=== PATIENT | male | born 1960 | race Caucasian/White ===

== ENCOUNTER → 2017-09-13 | Outpatient (CLI) | payer MEDICAID | LOC: FIMAGING 15:48 | PROVIDERS: ATTEND Internal Medicine Pulmonary Disease | DX: Z09 Encounter for follow-up examination after completed treatment for conditions other than malignant neoplasm (principal); Z87.09 Personal history of other diseases of the respiratory system; Z98.890 Other specified postprocedural states ==

== ENCOUNTER → 2017-11-15 | Outpatient (CLI) | payer MEDICAID | LOC: FIMAGING 14:24 | PROVIDERS: ATTEND Internal Medicine Pulmonary Disease | DX: R91.8 Other nonspecific abnormal finding of lung field (principal); Z98.890 Other specified postprocedural states; Z87.09 Personal history of other diseases of the respiratory system ==

== ENCOUNTER → 2017-12-19 | Outpatient (CLI) | payer MEDICAID | LOC: FIMAGING 10:22 | PROVIDERS: ATTEND Internal Medicine Pulmonary Disease | DX: R60.0 Localized edema (principal) ==

== ENCOUNTER 2018-10-25 16:28 | Inpatient (IN) | payer MEDICAID, OTHER ==
--- NOTE | 2018-10-25 16:59 | EDPHY ---
H & P Stated Complaint: CP/hx of pneumothorax Time Seen by Provider: 10/25/18 16:51 HPI/ROS: CHIEF COMPLAINT: Chest pain chest pain, dyspnea x1 hour HISTORY OF PRESENT ILLNESS: 58-year-old male history of recurrent pneumothoraces arrives via private vehicle complaining of chest pain dyspnea for the past 1 hr which occurred when he was shaking a can. He notes history of asthma, has been experiencing recent URI symptoms. Denies trauma. REVIEW OF SYSTEMS: 10 systems reviewed and negative with the exception of the elements mentioned in the history of present illness PAST MEDICAL & SURGICAL HISTORY: multiple pneumothoraces, asthma SOCIAL HISTORY: Nonsmoker. PHYSICAL EXAM (Prior to examination, patient consented to physical exam, hands were washed and my usual and customary physical exam procedures followed) 1) GENERAL: Marfan-esque body habitus alert and oriented. Appears to be in no acute distress. 2) HEAD: Normocephalic, atraumatic 3) HEENT: Pupils equal, round, reactive to light bilaterally. Sclera anicteric. 4) NECK: Full range of motion, no meningeal signs. 5) LUNGS: decreased breath sound right lung apex, no wheezes, no rhonchi, no retractions. 6) HEART: Regular rate and rhythm, no murmur, no heave, no gallop. 7) ABDOMEN: No guarding, no rebound, no focal tenderness, negative McBurney's, negative Poon's, negative Rovsing's, negative peritoneal sign, 8) MUSCULOSKELETAL: Moving all extremities, no focal areas of tenderness, no obvious trauma. No peripheral edema or discoloration. 9) BACK: No CVA tenderness, no midline vertebral tenderness, no fluctuance, no step-off, no obvious trauma, no visual or palpable abnormality. 10) SKIN: No rash, no petechiae. 11) Psychiatric: Patient is oriented X 3, there is no agitation. DIFFERENTIAL DIAGNOSIS: In no particular order include but limited to pneumothorax, hemothorax, acute asthma exacerbation - Personal History Current Tetanus/Diphtheria Vaccine: Yes - Medical/Surgical History Hx Asthma: No Hx Chronic Respiratory Disease: No Hx Diabetes: No Hx Cardiac Disease: No Hx Renal Disease: No Hx Cirrhosis: No Hx Alcoholism: No Other PMH: pneumo - Social History Smoking Status: Never smoked Constitutional: Initial Vital Signs Temperature (C) 36.7 C 10/25/18 16:37 Heart Rate 69 10/25/18 16:37 Respiratory Rate 22 H 10/25/18 16:37 Blood Pressure 74/41 L 10/25/18 16:37 O2 Sat (%) 93 10/25/18 16:37 O2 Delivery Mode Nasal Cannula O2 (L/minute) 2 Allergies/Adverse Reactions: No Known Allergies Allergy (Unverified 10/25/18 16:46) Home Medications: Medication Instructions Recorded Albuterol Sulfate [Proair Hfa] 1 puffs IH Q4-6PRN PRN 10/25/18 Calcium Carbonate [Tums 500MG (*)] 500 mg PO HS PRN 10/25/18 Nitroglycerin [Nitroglycerin] 1 tab SL Q5M PRN 10/25/18 Simethicone [Gas Relief] 125 mg PO HS PRN 10/25/18 Tamsulosin HCl [Flomax 0.4 MG (*)] 0.4 mg PO HS 10/25/18 sulfaSALAzine [Sulfasalazine] 500 mg PO BID 10/25/18 Medical Decision Making - Diagnostics Imaging Results: Imaging Impressions Chest X-Ray 10/25/18 16:44 Impression: 1. Interim development of a right apical pneumothorax. 2. Status post left apical bullectomy change with stable appearance of the left apical cavity, compared to 09/13/2017 and associated volume loss with tracheal shift to the left. 3. COPD with bronchitis. Findings were discussed with Luis Granados PA-C at 17:39, on 10/25/2018. Chest CT 10/25/18 17:09 Impression: 1. Stable appearance of right-sided pneumothorax, compared to chest radiography earlier this afternoon. 2. Relatively stable appearance of air-containing cavity in the left apex with prior left apical bullectomy change, compared to 11/15/2017. ED Course/Re-evaluation: 5:00 p.m.: Chest x-ray confirms bilateral pneumothoraces right slightly greater than left. On-call trauma surgery has been paged. Last oral intake noon today. 5:05 p.m.: Consultation with on-call trauma surgery Dr. Jann Rao 6:30 p.m.: in the ER to evaluate patient 6:50 p.m.: Dr. Rao will admit patient Step-Down Unit - Data Points Laboratory Results: Laboratory Results 10/25/18 16:57 10/25/18 16:57 10/25/18 10/25/18 10/25/18 16:57 16:57 16:57 WBC 9.95 10^3/uL H 10^3/uL (3.80-9.50) RBC 4.39 10^6/uL L 10^6/uL (4.40-6.38) Hgb 13.7 g/dL g/dL (13.7-17.5) Hct 42.3 % % (40.0-51.0) MCV 96.4 fL fL (81.5-99.8) MCH 31.2 pg pg (27.9-34.1) MCHC 32.4 g/dL g/dL (32.4-36.7) RDW 12.9 % % (11.5-15.2) Plt Count 206 10^3/uL 10^3/uL (150-400) MPV 9.0 fL fL (8.7-11.7) Neut % (Auto) 68.8 % % (39.3-74.2) Lymph % (Auto) 18.0 % % (15.0-45.0) Louisa % (Auto) 11.0 % % (4.5-13.0) Eos % (Auto) 1.5 % % (0.6-7.6) Baso % (Auto) 0.5 % % (0.3-1.7) Nucleat RBC Rel Count 0.0 % % (0.0-0.2) Absolute Neuts (auto) 6.85 10^3/uL H 10^3/uL (1.70-6.50) Absolute Lymphs (auto) 1.79 10^3/uL 10^3/uL (1.00-3.00) Absolute Monos (auto) 1.09 10^3/uL H 10^3/uL (0.30-0.80) Absolute Eos (auto) 0.15 10^3/uL 10^3/uL (0.03-0.40) Absolute Basos (auto) 0.05 10^3/uL 10^3/uL (0.02-0.10) Absolute Nucleated RBC 0.00 10^3/uL 10^3/uL (0-0.01) Immature Gran % 0.2 % % (0.0-1.1) Immature Gran # 0.02 10^3/uL 10^3/uL (0.00-0.10) PT 13.8 SEC SEC (12.0-15.0) INR 1.10 (0.83-1.16) APTT 29.1 SEC SEC (23.0-38.0) Sodium 135 mEq/L mEq/L (135-145) Potassium 3.7 mEq/L mEq/L (3.5-5.2) Chloride 97 mEq/L mEq/L (97-110) Carbon Dioxide 29 mEq/l mEq/l (22-31) Anion Gap 9 mEq/L mEq/L (6-14) BUN 12 mg/dL mg/dL (7-23) Creatinine 0.9 mg/dL mg/dL (0.7-1.3) Estimated GFR > 60 Glucose 101 mg/dL H mg/dL (70-100) Calcium 9.1 mg/dL mg/dL (8.5-10.4) Medications Given: Ibuprofen (Motrin) 600 mg PO Q8HRS WALKER Stop: 04/23/19 21:59 Last Admin: 10/25/18 21:26 Dose: 600 mg Simethicone (Mylicon) 120 mg PO HS PRN PRN Reason: BLOATING Last Admin: 10/25/18 21:27 Dose: 120 mg Sulfasalazine (Azulfidine) 500 mg PO BID WALKER Stop: 11/24/18 20:59 Last Admin: 10/25/18 21:27 Dose: 500 mg Tamsulosin HCl (Flomax) 0.4 mg PO HS WALKER Stop: 04/23/19 20:59 Last Admin: 10/25/18 21:27 Dose: 0.4 mg Discontinued Medications Fentanyl (Sublimaze) 50 mcg IVP EDNOW ONE Stop: 10/25/18 17:01 Last Admin: 10/25/18 17:05 Dose: 50 mcg Sodium Chloride (Ns) 1,000 mls @ 0 mls/hr IV ONCE ONE PRN Reason: Wide Open Stop: 10/25/18 17:01 Last Admin: 10/25/18 17:05 Dose: 1,000 mls Departure - Departure Disposition: [facility] Acute Clinical Impression: Pneumothorax Qualifiers: Pneumothorax type: spontaneous, primary Qualified Code(s): J93.11 - Primary spontaneous pneumothorax Condition: Fair
[2018-10-25] MEDS ORDERED: NS 1,000 ML IV ONE (17:00)
[2018-10-25] MEDS ORDERED: fentaNYL 100 MCG/2 ML INJ IVP ONE (17:00)
[2018-10-25 17:09] LABS: PLATELET COUNT 206 10^3/uL (150-400)
[2018-10-25 17:20] LABS: INR 1.1 (0.83-1.16); PROTIME(PATIENT) 13.8 SEC (12.0-15.0)
[2018-10-25] MEDS ORDERED: IOPAMIDOL (ISOVUE-300) 100 ML BTL ONE (17:27)
[2018-10-25] MEDS ORDERED: NITROGLYCERIN 0.4 MG BTL SL PRN (19:22)
[2018-10-25] MEDS ORDERED: SIMETHICONE 80 MG TAB CHEW PO PRN (19:22)
[2018-10-25] MEDS ORDERED: ONDANSETRON DISINTEGRATING 4 MG TAB PO PRN (19:23)
[2018-10-25] MEDS ORDERED: HYDROCODONE/APAP 5/325 TAB PO PRN (19:23)
[2018-10-25] MEDS ORDERED: ALBUTEROL 60 PUFFS/8 GM MDI IH PRN (19:26)
--- NOTE | 2018-10-25 19:28 | PDGENHP ---
History and Physical - Chief Complaint right sided chest pain - History of Present Illness 58 y/o male with recent URI and sudden onset of right sided chest pain following a coughing spell. He was seen in the ED and plain films showed "bilateral" pneumothorax. Surgical consult was requested History Information - Allergies/Home Medication List Allergies/Adverse Reactions: No Known Allergies Allergy (Unverified 10/25/18 16:46) Home Medications: Albuterol Sulfate [Proair Hfa] 1 puffs IH Q4-6PRN PRN 10/25/18 [Last Taken Unknown] Calcium Carbonate [Tums 500MG (*)] 500 mg PO HS PRN 10/25/18 [Last Taken Unknown ] Nitroglycerin [Nitroglycerin] 1 tab SL Q5M PRN 10/25/18 [Last Taken Unknown] Simethicone [Gas Relief] 125 mg PO HS PRN 10/25/18 [Last Taken 10/24/18] Tamsulosin HCl [Flomax 0.4 MG (*)] 0.4 mg PO HS 10/25/18 [Last Taken 10/24/18] sulfaSALAzine [Sulfasalazine] 500 mg PO BID 10/25/18 [Last Taken 10/25/18 13:00] I have personally reviewed and updated: family history, medical history, social history, surgical history - Past Medical History asthma Additional medical history: BPH - Surgical History Additional surgical history: left VATS for spontaneous pneumothorax. drainage of pelvic synovial cyst - Family History Positive for: non-pertinent - Social History Smoking Status: Never smoked Alcohol Use: None Drug Use: None Additional social history: /accompanied by his . last visit to [place] [facility] 2016 Review of Systems Review of Systems: Constitutional: Reports: recent illness EENMT: Reports: no symptoms Cardiac: Reports: chest pain Respiratory: Reports: cough, shortness of breath, wheezing Gastrointestinal: Reports: no symptoms Genitourinary: Reports: no symptoms Muscolosketal: Reports: no symptoms Skin: Reports: no symptoms Neurological: Reports: no symptoms Hematologic/Lymphatic: Reports: no symptoms Physical Exam Physical Exam: Temp Pulse Resp BP Pulse Ox 36.9 C 62 20 102/53 L 98 10/25/18 18:28 10/25/18 19:20 10/25/18 19:20 10/25/18 19:20 10/25/18 19:20 O2 (L/minute) 2 Constitutional: no apparent distress, other (thin adult male in NAD) Eyes: PERRL Cardiovascular: regular rate and rhythym Peripheral Pulses: 3+: femoral (R), femoral (L) Respiratory: no respiratory distress, no rales or rhonchi, reduced air movement (right), bronchial breath sounds Gastrointestinal: soft, non-tender abdomen, no palpable masses Genitourinary: no bladder fullness Skin: warm Musculoskeletal: full muscle strength Neurologic: AAOx3 Psychiatric: interacting appropriately, not anxious Lymph, Heme, Immunologic: no cervical LAD, no supraclavicular LAD Lab Data & Imaging Review 10/25/18 16:57 10/25/18 16:57 WBC 9.95 10^3/uL (3.80-9.50) H 10/25/18 16:57 RBC 4.39 10^6/uL (4.40-6.38) L 10/25/18 16:57 Hgb 13.7 g/dL (13.7-17.5) 10/25/18 16:57 Hct 42.3 % (40.0-51.0) 10/25/18 16:57 MCV 96.4 fL (81.5-99.8) 10/25/18 16:57 MCH 31.2 pg (27.9-34.1) 10/25/18 16:57 MCHC 32.4 g/dL (32.4-36.7) 10/25/18 16:57 RDW 12.9 % (11.5-15.2) 10/25/18 16:57 Plt Count 206 10^3/uL (150-400) 10/25/18 16:57 MPV 9.0 fL (8.7-11.7) 10/25/18 16:57 Neut % (Auto) 68.8 % (39.3-74.2) 10/25/18 16:57 Lymph % (Auto) 18.0 % (15.0-45.0) 10/25/18 16:57 Emmet % (Auto) 11.0 % (4.5-13.0) 10/25/18 16:57 Eos % (Auto) 1.5 % (0.6-7.6) 10/25/18 16:57 Baso % (Auto) 0.5 % (0.3-1.7) 10/25/18 16:57 Nucleat RBC Rel Count 0.0 % (0.0-0.2) 10/25/18 16:57 Absolute Neuts (auto) 6.85 10^3/uL (1.70-6.50) H 10/25/18 16:57 Absolute Lymphs (auto) 1.79 10^3/uL (1.00-3.00) 10/25/18 16:57 Absolute Monos (auto) 1.09 10^3/uL (0.30-0.80) H 10/25/18 16:57 Absolute Eos (auto) 0.15 10^3/uL (0.03-0.40) 10/25/18 16:57 Absolute Basos (auto) 0.05 10^3/uL (0.02-0.10) 10/25/18 16:57 Absolute Nucleated RBC 0.00 10^3/uL (0-0.01) 10/25/18 16:57 Immature Gran % 0.2 % (0.0-1.1) 10/25/18 16:57 Immature Gran # 0.02 10^3/uL (0.00-0.10) 10/25/18 16:57 PT 13.8 SEC (12.0-15.0) 10/25/18 16:57 INR 1.10 (0.83-1.16) 10/25/18 16:57 APTT 29.1 SEC (23.0-38.0) 10/25/18 16:57 Sodium 135 mEq/L (135-145) 10/25/18 16:57 Potassium 3.7 mEq/L (3.5-5.2) 10/25/18 16:57 Chloride 97 mEq/L (97-110) 10/25/18 16:57 Carbon Dioxide 29 mEq/l (22-31) 10/25/18 16:57 Anion Gap 9 mEq/L (6-14) 10/25/18 16:57 BUN 12 mg/dL (7-23) 10/25/18 16:57 Creatinine 0.9 mg/dL (0.7-1.3) 10/25/18 16:57 Estimated GFR > 60 04/06/19 16:57 Glucose 101 mg/dL (70-100) H 10/25/18 16:57 Calcium 9.1 mg/dL (8.5-10.4) 10/25/18 16:57 Visualized and Interpreted Chest x-ray results: Yes Chest X-Ray results: no infiltrate, other (right pnumothorax 10-15%/Left apical pneumatocoel) Visualized and Interpreted imaging results: Yes Interpretation: CT reviewed and compared to prior studies. Chronic left apical pneumatocoel, right pneumothorax without effusion or infiltrate Assessment & Plan Assessment: right pneumothorax hx spontaneous left pneumothorax s/p VATS with chronic left apical pneumatocoel asthma urinary retention Plan: Admit observation, serial CXR, may need closed tube thoracostomy If definitive surgery is needed (R VATS blebectomy/pleurodesis) I would wait until his URI is fully recovered to reduce his post operative risks
[2018-10-25] MEDS ORDERED: TAMSULOSIN HCL 0.4 MG CAP PO SCH (21:00)
[2018-10-25] MEDS: IBUPROFEN 600 MG TAB PO SCH (21:26)
[2018-10-25] MEDS: sulfaSALAzine 500 MG TAB PO SCH (21:27)
--- NOTE | 2018-10-25 23:22 | SOAPPROG ---
Downtime Inpatient MD Late Entry SOAP Note: Repeat CXR shows no significant change will continue observation and obtain CXR in AM
[2018-10-26] MEDS: IBUPROFEN 600 MG TAB PO SCH (06:36)
--- NOTE | 2018-10-26 11:21 | PDMN ---
Medical Necessity Medical necessity: [facility] M500 Pneumothorax, A-2 days: 58 yo w/ recent URI and sudden onset CP and cough. Eval reveals R pneumothorax - pt has hx spontaneous L pneumothorax s/p VATS w/ chronic left apical pneumatocoel. Meets [facility] IP criteria for recurrent episode of pneumothorax. Admit IP status to SDU for serial CXR, close monitoring, poss closed tube thoracostomy. Trauma following.
--- NOTE | 2018-10-26 11:45 | ASDISCHSUM ---
Discharge Information Plan Status:Home with No Needs Medically Cleared to Leave:10/26/2018 Discharge Date:10/26/2018 CM D/C Disposition:Home, Routine, Self-Care ADT D/C Disposition:Home, Routine, Self-Care Projected Discharge Date:10/26/2018 Transportation at D/C: Discharge Delay Reason: Follow-Up Date:10/26/2018 Discharge Slot: Final Diagnosis: Placement Information Patient Contact Information Contact Name:PRAFUL Relationship:Sister Address: Home Phone: City:[place] Alternate Phone: State/Next Health Code:[place] Email: Financial Information Financial Class:HMO and PPO Plans Primary Plan Desc:[employer] Primary Plan Number:[id number] Secondary Plan Desc: Secondary Plan Number: Assessment Information LACE LACE Length of stay for Answers: Less than 1 day current admission Acuity / Level of Answers: Yes Care: Did the patient have an inpatient admission? Comorbidities - select Answers: Other Notes: asthma, BPH all that apply # of Emergency department Answers: 1-2 visits in the last 6 months Score: 5 Date Signed: 10/26/2018 11:44 AM Electronically Signed By:Chiquis Hernandez RN Intervention Information
[2018-10-26 11:47] VITALS: BP 96/56
[2018-10-26] MEDS: sulfaSALAzine 500 MG TAB PO SCH (11:57)
--- NOTE | 2018-10-26 15:54 | SOAPPROG ---
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 Will discharge home with repeat CXR tomorrow am. Discussed to return if short of breath, increased pain, decreased O2 or vertigo or other concerns S: Feeling improved today. Minimal discomfort Plan: 10/26/18 15:49 Objective: Vital Signs Temp Pulse Resp BP Pulse Ox 36.7 C 55 L 24 H 96/56 L 100 10/26/18 11:46 10/26/18 11:46 10/26/18 11:46 10/26/18 11:46 10/26/18 11:46 10/25/18 10/26/18 10/27/18 05:59 05:59 05:59 Intake Total 840 Balance 840 PT 13.8 SEC (12.0-15.0) 10/25/18 16:57 INR 1.10 (0.83-1.16) 10/25/18 16:57 Physical Exam - Physical Exam General Appearance: WD/WN, alert, no apparent distress, thin EENT: PERRL/EOMI, normal ENT inspection, pharynx normal, No scleral icterus (R) , No scleral icterus (L), No hearing deficit Neck: non-tender, full range of motion Respiratory: chest non-tender, lungs clear, normal breath sounds Cardiac/Chest: regular rate, rhythm Back: Normal inspection Skin: normal color, warm/dry Neuro/Psych: no motor/sensory deficits, alert, normal mood/affect ICD10 Worksheet Patient Problems: Problems Problem Status Onset Pneumothorax Acute
--- NOTE | 2018-10-26 16:55 | GDS ---
[f rep st] DISCHARGE SUMMARY PRIMARY DIAGNOSIS: Right spontaneous pneumothorax. SECONDARY DIAGNOSES: 1. History of left spontaneous pneumothorax with chronic pneumatocele. 2. Asthma. 3. Urinary retention. HISTORY OF PRESENT ILLNESS: This is a 58-year-old male with recent upper respiratory infection and s udden onset of right-sided chest pain following a coughing spell. He was seen in the emergency depar tment. Plain films showed pneumothorax. Surgical consult was requested. Patient has history signif icant for multiple spontaneous pneumothoraces, as well as a chronic left pneumatocele following VATS . HOSPITAL COURSE: Patient was admitted for serial chest x-rays following right-sided pneumothorax. S erial chest x-rays showed no change, patient was stable, at which point he was discharged with instru ctions to return should symptoms worsen or change. DISCHARGE CONDITION: Patient is independently ambulatory, diet as tolerated. FOLLOWUP: Patient is to follow up for chest x-ray in the morning at [facility] to re-e valuate status with pneumothorax. /[id number]/MODL
== END 2018-10-26 12:45 | disposition home or self-care (01) | DRG 201 ==
LOC: F2N 21:04 → OBSVTOIN 10-26 10:23
PROVIDERS: ADMIT Surgery; ATTEND Surgery
DX: J93.83 Other pneumothorax (principal); J45.909 Unspecified asthma, uncomplicated; N40.1 Benign prostatic hyperplasia with lower urinary tract symptoms; R33.8 Other retention of urine
CPT/HCPCS: 96374; J3010; Q9967

== ENCOUNTER → 2018-10-27 | Outpatient (CLI) | payer OTHER | LOC: FIMAGING 09:46 | PROVIDERS: ATTEND Surgery | DX: J93.83 Other pneumothorax (principal) ==

== ENCOUNTER → 2018-11-19 | Outpatient (CLI) | payer OTHER | LOC: FIMAGING 15:54 | PROVIDERS: ATTEND Internal Medicine Pulmonary Disease | DX: J93.9 Pneumothorax, unspecified (principal) ==

== ENCOUNTER → 2019-01-07 | Outpatient (CLI) | payer OTHER | LOC: CIMAGING 17:43 ==